=== PATIENT | female | born 1975 | race Caucasian/White ===

== ENCOUNTER 2016-09-08 16:15 | Emergency (ER) | payer OTHER ==
[2016-09-08 16:57] VITALS: BP 125/66
--- NOTE | 2016-09-08 17:54 | UC ---
Throat Pain/Nasal Branden HPI - HPI Summary HPI Summary: Patient has had sore throat for about a week, coworker has strep. - History of Current Complaint Chief Complaint: UCRespiratory Stated Complaint: SORE THROAT Time Seen by Provider: 09/08/16 17:45 Hx Obtained From: Patient Hx Last Menstrual Period: 08/25/16 Onset/Duration: Sudden Onset, Lasting Days - 7 Severity: Mild Associated Signs & Symptoms: Positive: Dysphagia, Hoarseness - Allergies/Home Medications Allergies/Adverse Reactions: Allergies Allergy/AdvReac Type Severity Reaction Status Date / Time Sulfa Antibiotics Allergy Severe Rash Verified 09/08/16 16:57 Home Medications: Home Medications Fluticasone-Salmeterol 250-50* [Advair Diskus 250-50*] 1 puff INH BID PRN [History Confirmed 09/08/16] PMH/Surg Hx/FS Hx/Imm Hx Previously Healthy: Yes Respiratory History Of: Reports: Asthma Neurological History Of: Reports: Migraine - TENSION HEADACHES - Surgical History Surgical History: Yes Surgery Procedure, Year, and Place: SKIN/TISSUE REMOVAL - Family History Known Family History: Negative: Hypertension - Social History Alcohol Use: Rare Substance Use Type: None Smoking Status (MU): Never Smoked Tobacco Review of Systems Constitutional: Negative Skin: Negative Eyes: Negative ENT: Sore Throat Respiratory: Negative Cardiovascular: Negative Gastrointestinal: Negative Genitourinary: Negative Motor: Negative Neurovascular: Negative Musculoskeletal: Negative Neurological: Negative Psychological: Negative All Other Systems Reviewed And Are Negative: Yes Physical Exam Triage Information Reviewed: Yes Appearance: Well-Nourished, Ill-Appearing, Pain Distress Vital Signs: Initial Vital Signs Temp 97.6 F 09/08/16 16:51 Pulse 70 09/08/16 16:51 Resp 14 09/08/16 16:51 BP 125/66 09/08/16 16:51 Pulse Ox 100 09/08/16 16:51 Vital Signs Reviewed: Yes Eye Exam: Normal Eyes: Positive: Conjunctiva Clear ENT: Positive: Hearing grossly normal, Pharyngeal erythema, TM bulging, Muffled/ hoarse voice Dental Exam: Normal Neck exam: Normal Neck: Positive: Supple, Nontender, No Lymphadenopathy Respiratory Exam: Normal Cardiovascular Exam: Normal Abdominal Exam: Normal Bowel Sounds: Positive: Present Musculoskeletal Exam: Normal Neurological Exam: Normal Psychological Exam: Normal Skin Exam: Normal Throat Pain/Nasal Course/Dx - Course Course Of Treatment: hx obtained, exam performed, meds reviewed, rapid strep negative, prednisone prescribed for inflammation - Differential Dx/Diagnosis Differential Diagnosis/HQI/PQRI: Influenza, Laryngitis, Otitis Media, Pharyngitis, Sinusitis Provider Diagnoses: pharyngitis Discharge - Discharge Plan Condition: Stable Disposition: HOME Prescriptions: predniSONE TAB* [Deltasone TAB*] 40 mg PO DAILY #10 tab Patient Education Materials: Pharyngitis (ED) Additional Instructions: 1. take the medication as prescribed. 2. Increase your fluid intake and get plenty of rest. 3. Follow up with any worsening symptoms.
== END 2016-09-08 17:58 | disposition home or self-care (01) ==
LOC: UCCORT 16:15
DX: J02.9 Acute pharyngitis, unspecified (principal); J45.909 Unspecified asthma, uncomplicated; G43.909 Migraine, unspecified, not intractable, without status migrainosus; Z88.1 Allergy status to other antibiotic agents
CPT/HCPCS: 87651; 99212; G0463

== ENCOUNTER 2016-12-18 15:43 | Emergency (ER) | payer OTHER ==
[2016-12-18 15:55] VITALS: BP 113/65
--- NOTE | 2016-12-18 16:16 | UC ---
Throat Pain/Nasal Branden HPI - HPI Summary HPI Summary: 41 y/o female present to the urgent care c/o sinusitis for the past month that is getting worse. Pt states symptoms started with an ear infection and sore throat, then sinusitis and cough. She has been taking her Adeline, Mucinex PO, w /o any improvement of symptoms. Pt states sinus pain is 6/10 with mild TOSCANO, green nasal discharge. Mild fever at home. cough is also productive with yellowish phlegm Pt denies SOB, chest pain, N/V/D. - History of Current Complaint Chief Complaint: UCRespiratory Stated Complaint: COLD,COUGH Time Seen by Provider: 12/18/16 16:00 Hx Obtained From: Patient Hx Last Menstrual Period: 08/25/16 ?: No Onset/Duration: Gradual Onset, Lasting Weeks - 1 month Severity: Moderate Pain Intensity: 8 - headache and sinus pain Pain Scale Used: 0-10 Numeric Cough: Productive - yellowish phlegm Associated Signs & Symptoms: Positive: Sinus Discomfort, Nasal Discharge - green nasal discharge. Negative: Dysphagia, Wheezing, Hoarseness, Fever, Vomiting - Epiglottits Risk Factors Epiglottis Risk Factors: Negative - Allergies/Home Medications Allergies/Adverse Reactions: Allergies Allergy/AdvReac Type Severity Reaction Status Date / Time Sulfa Antibiotics Allergy Severe Rash Verified 12/18/16 15:52 PMH/Surg Hx/FS Hx/Imm Hx Previously Healthy: Yes Endocrine History: Dyslipidemia Respiratory History: Asthma - Surgical History Surgical History: Yes Surgery Procedure, Year, and Place: SKIN/TISSUE REMOVAL - Family History Known Family History: Positive: Diabetes Negative: Hypertension Family History: Dyslipidemia - Social History Occupation: Employed Part-time Lives: With Family Alcohol Use: Rare Substance Use Type: None Smoking Status (MU): Never Smoked Tobacco Review of Systems Constitutional: Fever - subjective at home Skin: Negative Eyes: Negative ENT: Nasal Discharge, Sinus Congestion, Sinus Pain/Tenderness Respiratory: Cough - productive Cardiovascular: Negative Gastrointestinal: Negative Genitourinary: Negative Motor: Negative Neurovascular: Negative Musculoskeletal: Negative Neurological: Negative Psychological: Negative Is Patient Immunocompromised?: Yes All Other Systems Reviewed And Are Negative: Yes Physical Exam Triage Information Reviewed: Yes Appearance: Well-Appearing, No Pain Distress, Well-Nourished, Obese Vital Signs: Initial Vital Signs Temp 97 F 12/18/16 15:53 Pulse 75 12/18/16 15:53 Resp 16 12/18/16 15:53 BP 113/65 12/18/16 15:53 Pulse Ox 98 12/18/16 15:53 Vital Signs Reviewed: Yes Eye Exam: Normal Eyes: Positive: Conjunctiva Clear - PERRLA, EOMI ENT: Positive: Normal ENT inspection, Hearing grossly normal, Pharynx normal, Nasal congestion - erythematous and edematous nasal mucosa with yellowish nasal discharge, TMs normal, Other: - B/L sinus tenderness on percussion, Dental Exam: Normal Neck exam: Normal Neck: Positive: Supple, Nontender, No Lymphadenopathy Respiratory Exam: Normal Respiratory: Positive: Chest non-tender, Lungs clear, Normal breath sounds Cardiovascular Exam: Normal Cardiovascular: Positive: RRR, No Murmur, Pulses Normal Abdominal Exam: Normal Abdomen Description: Positive: Nontender, No Organomegaly, Soft. Negative: CVA Tenderness (R), CVA Tenderness (L) Bowel Sounds: Positive: Present Musculoskeletal Exam: Normal Musculoskeletal: Positive: Strength Intact, ROM Intact, No Edema Neurological Exam: Normal Psychological Exam: Normal Skin Exam: Normal Throat Pain/Nasal Course/Dx - Course Course Of Treatment: 41 y/o female present to the urgent care c/o sinusitis for the past month that is getting worse. Pt states symptoms started with an ear infection and sore throat, then sinusitis and cough. She has been taking her Adeline, Mucinex PO, w/o any improvement of symptoms. Pt states sinus pain is 6/ 10 with mild TOSCANO, green nasal discharge. Mild fever at home. cough is also productive with yellowish phlegm Pt denies SOB, chest pain, N/V/D.HX obtained. PE performed, meds reviewed. Pt with sinusitis for 1 month. Pt Rx Augmentin PO and Flonasa. Advised to increase fluid intake. if not imporvement of symptoms to f/u with her PCP for further evaluation and treatment. Pt undertood and agreed - Differential Dx/Diagnosis Differential Diagnosis/HQI/PQRI: Influenza, Laryngitis, Mononucleosis, Pharyngitis, Sinusitis, Tonsillitis, URI Provider Diagnoses: 1- Acute sinusitis. 2-Cough Discharge - Discharge Plan Condition: Stable Disposition: HOME Prescriptions: Amoxicillin/Clavulanate TAB* [Augmentin TAB 875*] 875 mg PO BID #20 tab Fluticasone NASAL SPRAY 50MCG* [Flonase NASAL SPRAY 50MCG*] 2 spray BOTH NARES DAILY #1 btl Patient Education Materials: Sinusitis (ED) Referrals: Tosin Serna NP [Primary Care Provider] - 1 Week Additional Instructions: 1- Please take the full course of the antibiotic to avoid resistance. 2-Please use the flonase nasal spray to clear your sinuses. Also use saline drops OTC as directed 3-If symptoms do not improve or worsen please return to the urgent care or f/u with your PCP in 1 week for further evaluation and treatment.
== END 2016-12-18 16:19 | disposition home or self-care (01) ==
LOC: UCEAST 15:43
DX: J01.90 Acute sinusitis, unspecified (principal); R05 Cough; E78.5 Hyperlipidemia, unspecified; J45.909 Unspecified asthma, uncomplicated; E66.9 Obesity, unspecified; Z88.2 Allergy status to sulfonamides
CPT/HCPCS: 99212; G0463